=== PATIENT | female | born 1945 | race Caucasian/White ===

== ENCOUNTER 2017-03-09 20:14 | Emergency (ER) | payer OTHER ==
[~2017-03-09] VITALS: Ht 162.6 cm; Wt 63.5 kg
[2017-03-09 20:20] VITALS: BP_SYST 145
[2017-03-09] MEDS ORDERED: ONDANSETRON 4 MG ODT TAB PO ONE (20:45)
[2017-03-09 21:07] LABS: BILIRUBIN,URINE 2+ (NEGATIVE); BLOOD, URINE 2+ (NEGATIVE); CLARITY/URINE HAZY (CLEAR); COLOR,URINE YELLOW (YELLOW); GLUCOSE,URINE NEGATIVE (NEGATIVE); KETONES,URINE 3+ (NEGATIVE); LEUKOCYTE ESTERASE ,URINE 1+ (NEGATIVE); NITRITE, URINE NEGATIVE (NEGATIVE); PH,URINE 5.5 (5.0-8.0); PROTEIN URINE TRACE (NEGATIVE)
[2017-03-09 21:26] VITALS: BP_SYST 145
[2017-03-09 22:15] LABS: BACTERIA,URINE MODERATE /HPF (None Seen); MUCUS,URINE 1+ /LPF (None Seen)
[2017-03-09 22:17] LABS: COARSE GRANULAR CASTS,URINE 0-10 /LPF (None Seen)
== END 2017-03-09 22:16 | disposition home or self-care (01) ==
LOC: SED 20:14
DX: I10 Essential (primary) hypertension (principal); Z85.820 Personal history of malignant melanoma of skin; N39.0 Urinary tract infection, site not specified
CPT/HCPCS: 81000; 87086; 99284; Q0162

== ENCOUNTER 2017-03-28 12:40 | Emergency (ER) | payer OTHER ==
[~2017-03-28] VITALS: Ht 162.6 cm; Wt 64.4 kg
[2017-03-28 12:54] VITALS: BP_SYST 110
[2017-03-28 13:50] LABS: BASOPHILS # (AUTO) 0.3 K/uL (0.0-0.2); BASOPHILS % (AUTO) 1.9 % (0.0-2.0); EOSINOPHILS # (AUTO) 0.1 K/uL (0.0-0.4); EOSINOPHILS % (AUTO) 0.9 % (0.0-4.0); HEMATOCRIT 35.6 % (36-48); HEMOGLOBIN 11.6 g/dL (12.0-16.0); LYMPHOCYTES # (AUTO) 3.4 K/uL (1.0-5.5); LYMPHOCYTES % (AUTO) 23.9 % (20.5-51.5); MEAN CORPUSCULAR HEMOGLOBIN 29 pg (27-31); MEAN CORPUSCULAR HGB CONC 33 % (32-36); MEAN CORPUSCULAR VOLUME 90 fL (79.0-98.0); MONOCYTES # (AUTO) 1.1 K/uL (0.0-1.0); MONOCYTES % (AUTO) 7.6 % (1.7-9.3); NEUTROPHILS # (AUTO) 9.4 K/uL (1.8-7.7); NEUTROPHILS % (AUTO) 65.7 % (40.0-70.0); PLATELET COUNT (AUTO) 389 K/uL (130-430); RED BLOOD CELL COUNT(AUTO) 3.97 MIL/uL (4.2-6.2); RED CELL DISTRIBUTION WIDTH 12.6 % (9.0-15.0); WHITE BLOOD COUNT (AUTO) 14.3 K/uL (4.8-10.8)
[2017-03-28 13:57] LABS: CALCIUM 9.6 mg/dL (8.4-11.0); CREATININE 1.15 mg/dL (0.55-1.30); POTASSIUM 5.3 mmol/L (3.5-5.1)
[2017-03-28 14:02] LABS: ALBUMIN 2.8 g/dL (3.4-4.8); TOTAL BILIRUBIN 0.3 mg/dL (0.0-1.0); TOTAL PROTEIN, SERUM 6.2 g/dL (6.4-8.3)
[2017-03-28 15:30] LABS: BILIRUBIN,URINE 2+ (NEGATIVE); BLOOD, URINE 3+ (NEGATIVE); CLARITY/URINE SL CLOUDY (CLEAR); COLOR,URINE BROWN (YELLOW); GLUCOSE,URINE NEGATIVE (NEGATIVE); KETONES,URINE TRACE (NEGATIVE); LEUKOCYTE ESTERASE ,URINE 3+ (NEGATIVE); NITRITE, URINE POSITIVE (NEGATIVE); PROTEIN URINE 2+ (NEGATIVE)
[2017-03-28] MEDS ORDERED: LISI10TA5 PO (15:34)
[2017-03-28] MEDS ORDERED: LIP20 PO (15:34)
[2017-03-28 15:44] LABS: BACTERIA,URINE MANY /HPF (None Seen); RBC,URINE >100 /HPF (0-3); WBC,URINE 50-80 /HPF (0-3)
[2017-03-28 15:45] LABS: MUCUS,URINE None Seen /LPF (None Seen)
[2017-03-28] MEDS ORDERED: ONDANSETRON HCL 4 MG/2 ML VIAL IVP ONE (15:45)
[2017-03-28] MEDS ORDERED: NACL 0.9% 1,000 ML IV ONE (15:45)
[2017-03-28] MEDS ORDERED: NA PHOS,M-B/NA PHOS,DI-BA 118 ML (FLEET ENEMA) RC ONE (16:00)
[2017-03-28] MEDS ORDERED: cefTRIAXone 1 GM IVPB PREMIX 50 ML IV ONE (18:45)
[2017-03-28 19:15] VITALS: BP_SYST 120
== END 2017-03-28 19:15 | disposition home or self-care (01) ==
LOC: SED 12:40
DX: N39.0 Urinary tract infection, site not specified (principal); J93.9 Pneumothorax, unspecified; I10 Essential (primary) hypertension; Z85.820 Personal history of malignant melanoma of skin
CPT/HCPCS: 36415; 71010; 74000; 74176; 80053; 81000; 83690; 85025; 87086; 96361; 96365; 96375; 99285; J0696; J2405; J7030